=== PATIENT | male | born 1990 | race Caucasian/White ===

== ENCOUNTER 2016-11-16 22:27 | Emergency (ER) | payer BC ==
--- NOTE | 2016-11-16 22:45 | EDM.PDOC ---
ED HPI GENERAL MEDICAL PROBLEM - General Chief Complaint: General Stated Complaint: CONGESTION Time Seen by Provider: 11/16/16 22:35 - History of Present Illness INITIAL COMMENTS - FREE TEXT/NARRATIVE: 26-year old male presents emergency room and nasal congestion. This is been getting worse this last week however the patient has on-and-off problems with what sounds like vasomotor rhinitis. Patient denies any significant fevers or chills he is chilled intermittently usually with coughing. He gets an occasional cough from postnasal drip. The patient has not had any recent bloody noses but has had bloody noses in the past. Patient has not used any routine medications for this yet he has used Mucinex and in the past with some success. - Related Data Allergies Allergy/AdvReac Type Severity Reaction Status Date / Time No Known Allergies Allergy Verified 08/11/16 21:24 Home Meds: Home Meds . [No Known Home Meds] 08/11/16 [History] Social & Family History - Tobacco Use Smoking Status *Q: Never Smoker - Recreational Drug Use Recreational Drug Use: No ED ROS GENERAL - Review of Systems Review Of Systems: See Below Constitutional: Reports: chills (He's had some chills with coughing). Denies: fever HEENT: Reports: Rhinitis, Sinus problem. Denies: Ear pain, Nosebleed Respiratory: Reports: Cough (Occasional cough) Cardiovascular: Reports: No symptoms GI/Abdominal: Reports: No symptoms ED EXAM, GENERAL - Physical Exam Exam: See Below Exam Limited By: No limitations General Appearance: alert, no apparent distress Eye Exam: bilateral eye: normal inspection Ears: normal external exam, normal canal, hearing grossly normal, normal TMs, other (Significant cerumen accumulation in the external canals not obstructing view of the tympanic membrane worse on the left) Nose: normal inspection, clear rhinorrhea, other (No sinus tenderness with percussion) Throat/Mouth: Normal inspection, Normal lips, Normal teeth, Normal gums, Normal oropharynx, Normal voice, No airway compromise Head: atraumatic, normocephalic Neck: normal inspection, supple, non-tender, full range of motion. No: lymphadenopathy (L), lymphadenopathy (R) Respiratory/Chest: no respiratory distress, lungs clear, normal breath sounds Cardiovascular: regular rate, rhythm, no edema, no murmur Departure - Departure Time of Disposition: 22:53 Disposition: Home, Self-Care 01 Clinical Impression: Allergic rhinitis Additional Instructions: Return to emergency room with any questions or problems. Start loratadine 10 mg daily. Start nasal irrigation. If this does not help within 4-5 days start Flonase, nasal spray or the generic equivalent. Followup in the clinic next week for recheck. [phone]
== END 2016-11-16 23:06 | disposition home or self-care (01) ==
LOC: JD.ED 22:27
DX: J30.9 Allergic rhinitis, unspecified (principal)
CPT/HCPCS: 99283

== ENCOUNTER 2017-07-02 12:15 | Emergency (ER) | payer BC ==
[2017-07-02 12:48] VITALS: BP 150/80
[2017-07-02] MEDS ORDERED: Cephalexin 500 MG Cap PO ONE (13:11)
--- NOTE | 2017-07-02 13:17 | EDM.PDOC ---
ED HPI GENERAL MEDICAL PROBLEM - General Chief Complaint: Lower Extremity Injury/Pain Stated Complaint: R LEG INFECTION Time Seen by Provider: 07/02/17 12:59 Source of Information: Reports: Patient History Limitations: Reports: No Limitations - History of Present Illness INITIAL COMMENTS - FREE TEXT/NARRATIVE: Patient complains of erythematous wound with no drainage to the right anterior cardenas from where boots had been rubbing against. Patient states this started this past Monday and has progressively worsened. The erythema has worsened as well as the pain and increased warmth. There's been no drainage present. He has no known history of MRSA or recent trauma to the affected area. Denies any fever/chills, redness extending up his leg, or any additional complaints. Right Lower Leg Pain Score (Numeric/FACES): 2 - Related Data Allergies Allergy/AdvReac Type Severity Reaction Status Date / Time No Known Allergies Allergy Verified 11/16/16 23:03 Home Meds: Home Meds Cephalexin [Keflex] 500 mg PO Q6HR #28 capsule 07/02/17 [Rx] Past Medical History HEENT History: Reports: Allergic Rhinitis Neurological History: Reports: Concussion, Migraines - Past Surgical History HEENT Surgical History: Reports: Adenoidectomy, Polypectomy, Tonsillectomy, Other (See Below) Social & Family History - Tobacco Use Smoking Status *Q: Never Smoker Second Hand Smoke Exposure: No - Caffeine Use Caffeine Use: Reports: Coffee - Recreational Drug Use Recreational Drug Use: No Review of Systems - Review of Systems Review Of Systems: ROS reveals no pertinent complaints other than HPI. ED EXAM, GENERAL - Physical Exam Exam: See Below Exam Limited By: No Limitations General Appearance: Alert, WD/WN, No Apparent Distress Ears: Hearing Grossly Normal Nose: Normal Inspection Throat/Mouth: Normal Voice, No Airway Compromise Neck: Normal Inspection, Supple Respiratory/Chest: No Respiratory Distress, No Accessory Muscle Use Cardiovascular: Normal Peripheral Pulses, Regular Rate, Rhythm Peripheral Pulses: 2+: Radial (R) Extremities: Other (2.5 x 3.0 erythematous wound with increased warmth to the right anterior cardenas. Pain with palpation. No drainage noted. No redness extending up his leg. No other wounds noted. No sensory motor deficits.) Neurological: Alert, Normal Cognition, No Motor/Sensory Deficits Psychiatric: Normal Affect, Normal Mood Course - Vital Signs Last Recorded V/S: Last Vital Signs Temp 97.6 F 07/02/17 12:47 Pulse 91 07/02/17 12:47 Resp 20 07/02/17 12:47 BP 150/80 H 07/02/17 12:47 Pulse Ox 96 07/02/17 12:47 - Orders/Labs/Meds Meds: Medications Discontinued Medications Generic Name Dose Route Start Last Admin Trade Name Gladys PRN Reason Stop Dose Admin Cephalexin 500 mg 07/02/17 13:11 07/02/17 13:29 Keflex PO 07/02/17 13:12 500 mg ONETIME ONE Administration - Re-Assessments/Exams Free Text/Narrative Re-Assessment/Exam: Will treat for cellulitis localized to the right anterior cardenas. Presumably this is strep related with no drainage noted concerning for staff. He has no history of MRSA. Order Keflex 500 mg by mouth. Will have the wound dressed per nursing with nonadherent dressing, bacitracin, and Jim wrap to decrease any further irritation. Discharge instructions as documented. Departure - Departure Time of Disposition: 13:14 Disposition: Home, Self-Care 01 Condition: Good Clinical Impression: Cellulitis Qualifiers: Site of cellulitis: extremity Site of cellulitis of extremity: lower extremity Laterality: right Qualified Code(s): L03.115 - Cellulitis of right lower limb - Discharge Information Prescriptions: Cephalexin [Keflex] 500 mg PO Q6HR #28 capsule Instructions: Cellulitis, Adult, [id number] Referrals: Sharri Maynard [Primary Care Provider] - Forms: ED Department Discharge Additional Instructions: As discussed. Cellulitis to the right lower leg. Treatment is keflex 500 mg 4 times a day for his next 7 days. Apply warm compresses to the affected area 3 times a day to draw out any infection. Pain management is Tylenol and Motrin in alternating fashion. Cleanse site twice daily with soap and water, pat dry with re application of triple antibiotic ointment, and dressing along with Jim wrap to decrease any further irritation. Follow-up with PCP in the next 3-5 days for reevaluation to ensure resolution of symptoms. Return to the ED for any new or worsening symptoms
== END 2017-07-02 13:30 | disposition home or self-care (01) ==
LOC: JD.ED 12:15
DX: L03.115 Cellulitis of right lower limb (principal)
CPT/HCPCS: 99283; A9270

== ENCOUNTER 2018-05-06 20:55 | Emergency (ER) | payer BC ==
[2018-05-06 21:11] VITALS: BP 128/78
--- NOTE | 2018-05-06 22:27 | EDM.PDOC ---
ED HPI GENERAL MEDICAL PROBLEM - General Chief Complaint: ENT Problem Stated Complaint: ear pain Time Seen by Provider: 05/06/18 21:26 Source of Information: Reports: Patient History Limitations: Reports: No Limitations - History of Present Illness INITIAL COMMENTS - FREE TEXT/NARRATIVE: Pt is a 28 yo male that comes in today for left ear pain that started Chris night and has progressively been getting worse. He states the outside of his ear is very sensitive, warm, swollen and tender to palpation and the inside of his ear also hurts and he feels there is "pressure". 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 He did go swimming in a pool about 10 days ago. He has never had anything like this before. He denies any F/C, hearing loss, dizziness or any other symptoms at this time. His PCP was Dr. Maynard but states he needs a referral to a new PCP since he's gone. 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 [No Known Home Meds] 05/06/18 [History] Past Medical History HEENT History: Reports: Allergic Rhinitis Neurological History: Reports: Concussion, Migraines - Past Surgical History HEENT Surgical History: Reports: Adenoidectomy, Polypectomy, Tonsillectomy, Other (See Below) Social & Family History - Tobacco Use Smoking Status *Q: Never Smoker - Caffeine Use Caffeine Use: Reports: Coffee, Energy Drinks, Soda - Recreational Drug Use Recreational Drug Use: No ED ROS ENT - Review of Systems Review Of Systems: ROS reveals no pertinent complaints other than HPI. ED EXAM, ENT - Physical Exam Exam: See Below Exam Limited By: No Limitations General Appearance: Alert, WD/WN, No Apparent Distress Eye Exam: Bilateral Eye: EOMI, Normal Inspection, PERRL Ears: Normal External Exam (right ear), Hearing Grossly Normal, Normal TMs ( right side), Auricular Erythema (left ear), Auricular Tenderness (left ear), Canal Swelling (left ear with erythema), TM Erythema (left ear), Cerumen Impaction (Right ear). No: Hearing Loss, Mastoid Swelling, Mastoid Tenderness, Canal Discharge, Canal Foreign Body, TM Bulging Nose: Normal Inspection, Normal Mucousa, No Blood Mouth/Throat: Normal Inspection, Normal Gums, Normal Lips, Normal Oropharynx, Normal Teeth Head: Atraumatic, Normocephalic Neck: Normal Inspection, Supple, Non-Tender, Full Range of Motion Respiratory/Chest: No Respiratory Distress, Lungs Clear, Normal Breath Sounds, No Accessory Muscle Use, Chest Non-Tender Cardiovascular: Normal Peripheral Pulses, Regular Rate, Rhythm, No Edema, No Gallop, No JVD, No Murmur, No Rub Neurological: Alert, Oriented, CN II-XII Intact, Normal Cognition, Normal Gait, Normal Reflexes, No Motor/Sensory Deficits Psychiatric: Normal Affect, Normal Mood Skin: Warm, Dry, Intact, Normal Color, No Rash Course - Vital Signs Last Recorded V/S: Last Vital Signs Temp 97.8 F 05/06/18 21:10 Pulse 73 05/06/18 21:10 Resp 20 05/06/18 21:10 BP 128/78 05/06/18 21:10 Pulse Ox 98 05/06/18 21:10 Departure - Departure Time of Disposition: 22:36 Disposition: Home, Self-Care 01 Condition: Fair Clinical Impression: Otitis externa - Discharge Information *PRESCRIPTION DRUG MONITORING PROGRAM REVIEWED*: Not Applicable *COPY OF PRESCRIPTION DRUG MONITORING REPORT IN PATIENT TIFFANI: Not Applicable Instructions: Ear Drops, Adult, [id number], Otitis Externa, [id number] Additional Instructions: You were seen in the ED today for left ear pain. It was found that you have an external ear infection (otitis externa). You will be prescribed an antibiotic ( Cipro). Use 3 drops twice per day for 7 days. You may follow up with your PCP if symptoms have not improved. Recommend Angie Irving. You can make an appointment with her at . Please return to ED if your symptoms worsen, especially if you experience fever , dizziness, drainage from the ear or loss of hearing.
== END 2018-05-06 22:45 | disposition home or self-care (01) ==
LOC: SUPCPDRO 20:55 → JD.ED 20:55
DX: H60.92 Unspecified otitis externa, left ear (principal); H61.21 Impacted cerumen, right ear
CPT/HCPCS: 99282; 99283